=== PATIENT | male | born 1990 | race Caucasian/White ===

== ENCOUNTER 2016-12-19 14:19 | Inpatient (IN) | payer OTHER ==
[2016-12-19 16:50] VITALS: BMI 25.5
--- NOTE | 2016-12-19 17:09 | HP ---
Admission ROS [facility] Chief Complaint: I WANT TO GO TO REHAB PATIENT HAD ELEVATED WHITE BLOOD CELL, ADMITTED TO [facility] X 7 DAYS, DISCHARGED 12/19/16 TO [facility] FOR ALCOHOL OPIATE XANAX REHAB, BOTH ELBOWS IV HEROIN SITES NO SWELLING, NO REDNESS, NO PAIN SKIN INTACT Allergies/Adverse Reactions: Allergies Allergy/AdvReac Type Severity Reaction Status Date / Time egg AdvReac Severe nausea and Verified 12/19/16 17:08 vomiting NKDA Allergy Uncoded 12/19/16 17:09 History of Present Illness: 26 YEARS OLD MALE WITH LONG HISTORY OF ALCOHOL, OPIATE, XANAX, NICOTINE DEPENDENCE, HAD INFECTION IN HEROIN SITES BOTH INNER ELBOWS, HAS DEPRESSION IS ADMITTED TO REHAB Exam Limitations: No Limitations - Ebola screening Have you traveled outside of the country in the last 21 days: No Have you had contact with anyone from an Ebola affected area: No Have you been sick,other than usual withdrawal symptoms: No Do you have a fever: No - Review of Systems Constitutional: Loss of Appetite, Unintentional Wgt. Loss EENT: reports: No Symptoms Reported Respiratory: reports: No Symptoms reported Cardiac: reports: No Symptoms Reported GI: reports: No Symptoms Reported : reports: No Symptoms Reported Musculoskeletal: reports: No Symptoms Reported Integumentary: reports: Change in Color (IV HEROIN BOTH INNER ELBOWS) Neuro: reports: No Symptoms reported Endocrine: reports: No Symptoms Reported Hematology: reports: No Symptoms Reported Psychiatric: reports: Judgement Intact, Orientated x3, Depressed Other Systems: Reviewed and Negative Patient History - Patient Medical History Hx Anemia: No Hx Asthma: No Hx Chronic Obstructive Pulmonary Disease (COPD): No Hx Cancer: No Hx Cardiac Disorders: No Hx Congestive Heart Failure: No Hx Hypertension: No Hx Hypercholesterolemia: No Hx Pacemaker: No HX Cerebrovascular Accident: No Hx Seizures: No Hx Dementia: No Hx Diabetes: No Hx Gastrointestinal Disorders: No Hx Liver Disease: No Hx Genitourinary Disorders: No Hx Sexually Transmitted Disorders: No Hx Renal Disease (ESRD): No Hx Thyroid Disease: No Hx Human Immunodeficiency Virus (HIV): No Hx Hepatitis C: No Hx Depression: Yes Hx Suicide Attempt: No Hx Bipolar Disorder: No Hx Schizophrenia: No - Patient Surgical History Past Surgical History: No - PPD History Previous Implant?: Yes Documented Results: Negative w/o proof Implanted On Prior [facility] Admission?: No PPD to be Administered?: Yes - Smoking Cessation Smoking history: Current every day smoker Have you smoked in the past 12 months: Yes Aproximately how many cigarettes per day: 20 Cigars Per Day: 0 Hx Chewing Tobacco Use: No Initiated information on smoking cessation: Yes 'Breaking Loose' booklet given: 12/19/16 - Substance & Tx. History Hx Alcohol Use: Yes Hx Substance Use: Yes Substance Use Type: Alcohol, Cocaine, Marijuana, Opiates Hx Substance Use Treatment: Yes (09/2016) Family Disease History - Family Disease History Family Disease History: Diabetes: Mother, Other: Father (/LIVER) Admission Physical Exam S - Vital Signs Vital Signs: Vital Signs - 24 hr 12/19/16 16:45 Temperature 98.5 F Pulse Rate 106 H Respiratory 20 Rate Blood Pressure 115/75 - Physical General Appearance: Yes: No Apparent Distress, Appropriately Dressed, Thin HEENTM: Yes: Hearing grossly Normal, Normal ENT Inspection, Normocephalic, Normal Voice Respiratory: Yes: Chest Non-Tender, Lungs Clear, Normal Breath Sounds, No Respiratory Distress, No Accessory Muscle Use Neck: Yes: Supple, Trachea in good position Breast: Yes: Breasts Symetrical Cardiology: Yes: Regular Rhythm, S1, S2, Tachycardia Abdominal: Yes: Normal Bowel Sounds, Non Tender, Soft Genitourinary: Yes: Within Normal Limits Back: Yes: Normal Inspection Musculoskeletal: Yes: full range of Motion, Gait Steady Extremities: Yes: Normal Inspection, Normal Range of Motion, Non-Tender Neurological: Yes: Fully Oriented, Alert, Motor Strength 5/5, Normal Response, Depressed Affect Integumentary: Yes: Warm, Track Dickson Lymphatic: Yes: Within Normal Limits - Diagnostic (1) Alcohol dependence with uncomplicated withdrawal Current Visit: Yes Status: Acute (2) Opioid dependence with withdrawal Current Visit: Yes Status: Acute (3) Sedative, hypnotic or anxiolytic dependence with withdrawal, uncomplicated Current Visit: Yes Status: Acute (4) Nicotine dependence Current Visit: Yes Status: Acute Qualifiers: Nicotine product type: cigarettes Substance use status: in withdrawal Qualified Code(s): F17.213 - Nicotine dependence, cigarettes, with withdrawal; F17.213 - Nicotine dependence, cigarettes, with withdrawal (5) Depression (emotion) Current Visit: Yes Status: Suspected Qualifiers: Depression Type: dysthymia Qualified Code(s): F34.1 - Dysthymic disorder; F34.1 - Dysthymic disorder; F34.1 - Dysthymic disorder (6) Weight loss Current Visit: Yes Status: Acute Cleared for Admission [facility] - Detox or Rehab [facility] Level of Care: Observation Bed Detox Regimen/Protocol: Not Applicable Claeared for Rehab Admission: Yes [facility] Breath Alcohol Content Breath Alcohol Content: 0 Urine Drug Screen - Results Drug Screen Negative: No Urine Drug Screen Results: BZO-Benzodiazepines, MTD-Methadone Inpatient Rehab Admission - Initial Determination Are CD services needed?: Yes Free of communicable disease: Yes Not in need of hospitalization: Yes - Rehab Admission Criteria Previous failed treatment: Yes Poor recovery environment: Yes Comorbidities: Yes Lacks judgement: No Patient is meeting Inpatient Rehab admission criteria:: Yes
[2016-12-19] MEDS ORDERED: LOPERAMIDE HCL 2 MG CAPSULE PO PRN (17:22)
[2016-12-19] MEDS ORDERED: P-EPHED 60MG/TRIPROLIDI 2.5MG TABLET PO PRN (17:22)
[2016-12-19] MEDS ORDERED: MAGNESIUM HYDROX 2400MG/30ML ORAL SUSPENSION 30 ML CUP PO PRN (17:22)
[2016-12-19] MEDS ORDERED: guaiFENesin/D-METHORPHAN HB 10 ML UNIT-DOSE CUPS PO PRN (17:22)
[2016-12-19] MEDS ORDERED: MAG HYDROX/AL HYDROX/SIMETH 30 ML UNIT-DOSE CUP PO PRN (17:22)
[2016-12-19] MEDS ORDERED: MAGNESIUM CITRATE 300 ML BOTTLE PO PRN (17:22)
[2016-12-19] MEDS ORDERED: IBUPROFEN 400 MG TABLET (FP) PO PRN (17:22)
[2016-12-19] MEDS ORDERED: MENTHOL/PHENOL 1 EACH UD MM PRN (17:22)
[2016-12-19] MEDS: THIAMINE HCL 100 MG TABLET (FP) PO SCH (22:08)
[2016-12-19] MEDS: NICOTINE POLACRILEX 4 MG GUM BC PRN (22:14)
[2016-12-19] MEDS ORDERED: TUBERCULIN PPD 5 TU/0.1ML VIAL ID ONE (22:16)
[2016-12-19] MEDS: METHOCARBAMOL 500 MG TABLET PO PRN (22:40)
[2016-12-20 00:31] LABS: URINE APPEARANCE CLEAR; URINE BILIRUBIN NEGATIVE (NEGATIVE); URINE BLOOD 1+ (NEGATIVE); URINE COLOR LT. YELLOW; URINE GLUCOSE (UA) NEGATIVE (NEGATIVE); URINE KETONE NEGATIVE (NEGATIVE); URINE NITRITE NEGATIVE (NEGATIVE); URINE UROBILINOGEN 0.2 mg/dL (0.2-1.0)
[2016-12-20 00:34] LABS: URINE PROTEIN 2+ (NEGATIVE)
[2016-12-20 00:46] LABS: URINE BACTERIA RARE /hpf (NONE SEEN); URINE HYALINE CAST 8 /lpf; URINE MUCUS RARE; URINE RBC 19 /hpf (0-3); URINE WBC 17 /hpf (3-5)
[2016-12-20] MEDS ORDERED: diphenhydrAMINE HCL 25 MG CAPSULE (FP) PO ONE (00:57)
[2016-12-20] MEDS ORDERED: diphenhydrAMINE HCL 50 MG CAPSULE PO ONE ×2 (01:15→01:28)
[2016-12-20 09:13] LABS: URINE LEUK ESTERASE Negative (NEGATIVE)
[2016-12-20] MEDS: PRENATAL VITAMINS W/ FOLIC ACID TABLET (FP) PO SCH (10:13)
[2016-12-20] MEDS: NICOTINE 21 MG/24 HOURS TOPICAL PATCH TD SCH (10:14)
[2016-12-20] MEDS: METHOCARBAMOL 500 MG TABLET PO PRN ×2 (11:24→21:29)
[2016-12-20] MEDS ORDERED: diphenhydrAMINE HCL 25 MG CAPSULE (FP) PO PRN (13:36)
--- NOTE | 2016-12-20 13:44 | HP ---
Psychiatrist Admission - Data Date of interview: 12/20/16 Admission source: [facility] Identifying data: This is the first 5n inpatient rehabilitation admission for this 26 year old single male who is unemployed residing with his mother and 17 year old sister [facility] [place] [facility]. Medical History: Reports a good physical health, smokes cigarettes 20 a day. Psychiatric History: Patient reports feeling depressed and anxious, was seen by a psychiatrist while incarcerated for 12 months at [facility] and was put on Gabapentin 300 mg po daily, after [facility] from [facility] he saw the psychiatrist once and no medications recommended "psychiatrist thought I was drug seeking". Patient is willing to start Gabapentin, Buspar and Naltrexone discussed with the patient he agreed with recommendations, Naltrexone will start next week. Physical/Sexual Abuse/Trauma History: Patient denies history of sexual, phsyical and verbal abuse. Vital Signs: Vital Signs - 24 hr 12/19/16 12/19/16 12/20/16 16:45 23:08 03:30 Temperature 98.5 F 98.3 F Pulse Rate 106 H 96 H Respiratory 20 18 18 Rate Blood Pressure 115/75 121/67 12/20/16 06:58 Temperature 97.9 F Pulse Rate 79 Respiratory 18 Rate Blood Pressure 112/72 Allergies/Adverse Reactions: Allergies Allergy/AdvReac Type Severity Reaction Status Date / Time No Known Drug Allergies Allergy Verified 12/19/16 17:40 egg AdvReac Severe nausea and Verified 12/19/16 17:08 vomiting NKDA Allergy Uncoded 12/19/16 17:09 Date of last physical exam: 12/19/16 Concur with the findings of this exam: Yes - Substance Abuse/Tx History Hx Alcohol Use: Yes (ying binge drinking 2-3 times a week) Hx Substance Use: Yes Substance Use Type: Heroin (injecting 10 bags daily ), Tranquilizers (xanax 2-3 times a week up to 6 mg) Hx Substance Use Treatment: Yes (was in detox, this is his first rehab.) Mental Status Exam - Mental Status Exam Alert and Oriented to: Time, Place, Person Cognitive Function: Good Patient Appearance: Well Groomed Mood: Depressed, Sad, Anxious Affect: Appropriate, Mood Congruent Patient Behavior: Appropriate, Cooperative Speech Pattern: Clear Voice Loudness: Normal Thought Process: Intact Thought Disorder: Not Present Hallucinations: Denies Suicidal Ideation: Denies Homicidal Ideation: Denies Insight/Judgement: Fair Sleep: Fair Appetite: Fair, Weight loss (lost 25 lbs over 2-3 weeks, now regaining back) Muscle strength/Tone: Normal Gait/Station: Normal Psychiatric Findings - Problem List ([place] 1, 2,3) (1) Nicotine dependence Current Visit: Yes Status: Acute Qualifiers: Nicotine product type: cigarettes Substance use status: in withdrawal Qualified Code(s): F17.213 - Nicotine dependence, cigarettes, with withdrawal; F17.213 - Nicotine dependence, cigarettes, with withdrawal (2) Alcohol dependence Current Visit: Yes Status: Acute (3) Opioid dependence Current Visit: Yes Status: Acute (4) Anxiety disorder Current Visit: Yes Status: Acute (5) Opioid-induced mood disorder Current Visit: Yes Status: Acute - Initial Treatment Plan Initial Treatment Plan: Psycheducation and therapy provided, will start Buspar 10 mg po tid. Gabapentin 100 mg po tid, will start Naltrexone next week, monitor progress as needed.
[2016-12-20] MEDS: hydrOXYzine PAMOATE 50 MG CAPSULE (FP) PO PRN ×2 (14:16→21:29)
[2016-12-20] MEDS: GABAPENTIN 100 MG CAPSULE (FP) PO SCH ×2 (14:16→21:29)
[2016-12-20] MEDS: busPIRone HCL 5 MG TABLET PO SCH ×2 (14:16→21:28)
[2016-12-20 14:33] LABS: MCH 27.3 pg (25.7-33.7); MCHC 32.4 g/dl (32.0-35.9); MEAN CELL VOLUME 84.5 fl (80-96); MEAN PLT VOLUME 7.5 fl (7.5-11.1); PLATELET COUNT 380 K/MM3 (134-434); RDW 16.1 % (11.9-15.9); WHITE BLOOD COUNT 11.4 K/mm3 (4.0-10.0)
[2016-12-20 15:16] LABS: ALBUMIN 4.2 g/dl (3.4-5.0); ANION GAP 11 (8-16); CALCIUM 9.5 mg/dL (8.5-10.1); CO2 27 mmol/L (21-32); GLUCOSE,RANDOM 98 mg/dL (74-106)
[2016-12-20 15:21] LABS: ALK PHOS 100 U/L (45-117); BILIRUBIN,TOTAL 0.4 mg/dL (0.2-1.0); CREATININE 0.8 mg/dL (0.7-1.3); SGOT/AST 119 U/L (15-37); SGPT/ALT 241 U/L (12-78); TOT PROT 8.4 g/dl (6.4-8.2)
--- NOTE | 2016-12-20 21:26 | EKG ---
Test Reason : Blood Pressure : / mmHG Vent. Rate : 074 BPM Atrial Rate : 074 BPM P-R Int : 140 ms QRS Dur : 108 ms QT Int : 392 ms P-R-T Axes : 059 026 031 degrees QTc Int : 435 ms NORMAL SINUS RHYTHM NORMAL ECG NO PREVIOUS ECGS AVAILABLE Confirmed by VALERIY GRANDE MD ([id number]) on 12/20/2016 9:26:18 PM Referred By: Confirmed By:VALERIY GRANDE MD
[2016-12-20] MEDS: ACETAMINOPHEN 325 MG TABLET (FP) PO PRN (21:29)
[2016-12-20] MEDS: THIAMINE HCL 100 MG TABLET (FP) PO SCH (21:29)
[2016-12-21] MEDS: GABAPENTIN 100 MG CAPSULE (FP) PO SCH ×3 (06:31→21:29)
[2016-12-21] MEDS: busPIRone HCL 5 MG TABLET PO SCH ×3 (07:31→21:29)
[2016-12-21] MEDS: PRENATAL VITAMINS W/ FOLIC ACID TABLET (FP) PO SCH (10:15)
[2016-12-21] MEDS: NICOTINE 21 MG/24 HOURS TOPICAL PATCH TD SCH (10:15)
[2016-12-21] MEDS: ACETAMINOPHEN 325 MG TABLET (FP) PO PRN ×2 (10:16→19:35)
[2016-12-21] MEDS: NICOTINE POLACRILEX 4 MG GUM BC PRN ×2 (10:17→13:14)
[2016-12-21] MEDS: METHOCARBAMOL 500 MG TABLET PO PRN (13:13)
[2016-12-21] MEDS: THIAMINE HCL 100 MG TABLET (FP) PO SCH (21:29)
[2016-12-21] MEDS: hydrOXYzine PAMOATE 50 MG CAPSULE (FP) PO PRN (21:30)
[2016-12-22] MEDS: busPIRone HCL 5 MG TABLET PO SCH ×2 (06:16→13:08)
[2016-12-22] MEDS: GABAPENTIN 100 MG CAPSULE (FP) PO SCH ×3 (06:16→21:37)
[2016-12-22] MEDS: NICOTINE 21 MG/24 HOURS TOPICAL PATCH TD SCH (10:18)
[2016-12-22] MEDS: PRENATAL VITAMINS W/ FOLIC ACID TABLET (FP) PO SCH (10:18)
[2016-12-22] MEDS: hydrOXYzine PAMOATE 50 MG CAPSULE (FP) PO PRN (10:20)
[2016-12-22] MEDS: NICOTINE POLACRILEX 4 MG GUM BC PRN (10:20)
--- NOTE | 2016-12-22 15:14 | PN ---
Psychiatric Progress Note Vital Signs: Vital Signs Period Temp Pulse Resp BP Sys/Dietz Pulse Ox Last 24 Hr 98.1 F 80 16-18 139/84 Date of Session: 12/22/16 Chief Complaint:: "can't sleep" HPI: Patient is addressing opioid, alcohol, nicotine dependence comorbid anxiety and substance induced sleep disorder. ROS: WNL Current Medications: Active Medications Generic Name Dose Route Start Last Admin Trade Name Freq PRN Reason Stop Dose Admin Acetaminophen 650 mg 12/19/16 17:22 12/21/16 19:35 Tylenol - PO 650 mg Q4H PRN Administration PAIN Al Hydroxide/Mg Hydroxide 30 ml 12/19/16 17:22 12/21/16 06:32 Mylanta Oral Suspension - PO 30 ml Q6H PRN Administration DYSPEPSIA Diphenhydramine HCl 50 mg 12/20/16 13:36 Benadryl - PO HS PRN INSOMNIA Eucalyptus/Menthol/Phenol/Sorbitol 1 each 12/19/16 17:22 Cepastat Lozenge - MM Q4H PRN SORE THROAT Gabapentin 100 mg 12/20/16 14:00 12/22/16 13:08 Neurontin - PO 100 mg TID LACIE Administration Guaifenesin 10 ml 12/19/16 17:22 Robitussin Dm - PO Q6H PRN COUGH Hydroxyzine Pamoate 50 mg 12/20/16 13:37 12/22/16 10:20 Vistaril - PO 50 mg Q4H PRN Administration ANXIETY Ibuprofen 400 mg 12/19/16 17:22 Motrin - PO Q6H PRN SEVERE PAIN Loperamide HCl 4 mg 12/19/16 17:22 Imodium - PO Q6H PRN DIARRHEA Magnesium Citrate 300 ml 12/19/16 17:22 Citroma - PO Q48H PRN CONSTIPATION Magnesium Hydroxide 30 ml 12/19/16 17:22 Milk Of Magnesia - PO DAILY PRN CONSTIPATION Methocarbamol 500 mg 12/19/16 17:24 12/21/16 13:13 Robaxin - PO 500 mg Q8H PRN Administration BACK PAIN Nicotine 21 mg 12/20/16 10:00 12/22/16 10:18 Nicoderm Patch - TD Not Given DAILY LACIE Nicotine Polacrilex 4 mg 12/19/16 17:22 12/22/16 10:20 Nicorette Gum - BC 4 mg Q2H PRN Administration NICOTINE REPLACEMENT RX Multivit/Folic Acid/Iron 1 tab 12/20/16 10:00 12/22/16 10:18 Vitamins ([facility]) - PO 1 tab DAILY LACIE Administration Pseudoephedrine/Triprolidine 1 combo 12/19/16 17:22 Actifed - PO TID PRN NASAL CONGESTION Thiamine HCl 100 mg 12/19/16 22:00 12/21/16 21:29 Vitamin B1 - PO 100 mg HS LACIE Administration Current Side Effect: No Lab tests ordered: No Lab tests reviewed: Yes Provider note:: Patient reports that he can't sleep well, thinks it's related to Buspar, states he refused Buspar and feels better but still having difficutly at nights, discussed indications and properties of Belsomra with the patient will add and continue to monitor progress. Total face to face time:: 25 Mental Status Exam - Mental Status Exam Alert and Oriented to: Time, Place, Person Cognitive Function: Good Patient Appearance: Well Groomed Mood: Sad Affect: Appropriate, Mood Congruent Patient Behavior: Appropriate, Cooperative Speech Pattern: Clear, Appropriate Voice Loudness: Normal Thought Process: Intact, Goal Oriented Thought Disorder: Not Present Hallucinations: Denies Suicidal Ideation: Denies Homicidal Ideation: Denies Insight/Judgement: Fair Sleep: Poorly, Difficulty falling asleep Appetite: Fair Muscle strength/Tone: Normal Psychiatric Treatment Plan - Problem List (1) Nicotine dependence Current Visit: Yes Qualifiers: Nicotine product type: cigarettes Substance use status: in withdrawal Qualified Code(s): F17.213 - Nicotine dependence, cigarettes, with withdrawal (2) Opioid-induced mood disorder Current Visit: Yes (3) Alcohol dependence Current Visit: Yes (4) Opioid dependence Current Visit: Yes (5) Anxiety disorder Current Visit: Yes
[2016-12-22] MEDS: THIAMINE HCL 100 MG TABLET (FP) PO SCH (21:37)
[2016-12-22] MEDS: SUVOREXANT 10 MG TABLET PO SCH (21:37)
[2016-12-23] MEDS: GABAPENTIN 100 MG CAPSULE (FP) PO SCH ×3 (06:17→21:49)
[2016-12-23] MEDS: hydrOXYzine PAMOATE 50 MG CAPSULE (FP) PO PRN (10:34)
[2016-12-23] MEDS: NICOTINE POLACRILEX 4 MG GUM BC PRN ×2 (10:34→21:50)
[2016-12-23] MEDS: PRENATAL VITAMINS W/ FOLIC ACID TABLET (FP) PO SCH (10:34)
[2016-12-23] MEDS: NICOTINE 21 MG/24 HOURS TOPICAL PATCH TD SCH (10:35)
[2016-12-23] MEDS: SUVOREXANT 10 MG TABLET PO SCH (21:49)
[2016-12-23] MEDS: THIAMINE HCL 100 MG TABLET (FP) PO SCH (21:50)
[2016-12-24] MEDS: GABAPENTIN 100 MG CAPSULE (FP) PO SCH ×3 (07:02→21:35)
[2016-12-24] MEDS: PRENATAL VITAMINS W/ FOLIC ACID TABLET (FP) PO SCH (10:09)
[2016-12-24] MEDS: METHOCARBAMOL 500 MG TABLET PO PRN (10:09)
[2016-12-24] MEDS: NICOTINE 21 MG/24 HOURS TOPICAL PATCH TD SCH (10:10)
[2016-12-24] MEDS: hydrOXYzine PAMOATE 50 MG CAPSULE (FP) PO PRN (10:10)
[2016-12-24] MEDS: SUVOREXANT 10 MG TABLET PO SCH (21:35)
[2016-12-24] MEDS: NICOTINE POLACRILEX 4 MG GUM BC PRN (21:35)
[2016-12-24] MEDS: THIAMINE HCL 100 MG TABLET (FP) PO SCH (21:35)
[2016-12-25] MEDS: GABAPENTIN 100 MG CAPSULE (FP) PO SCH ×3 (06:46→21:45)
[2016-12-25] MEDS: NICOTINE 21 MG/24 HOURS TOPICAL PATCH TD SCH (10:24)
[2016-12-25] MEDS: METHOCARBAMOL 500 MG TABLET PO PRN ×2 (10:24→21:45)
[2016-12-25] MEDS: hydrOXYzine PAMOATE 50 MG CAPSULE (FP) PO PRN ×3 (10:24→21:45)
[2016-12-25] MEDS: PRENATAL VITAMINS W/ FOLIC ACID TABLET (FP) PO SCH (10:24)
[2016-12-25] MEDS: THIAMINE HCL 100 MG TABLET (FP) PO SCH (21:45)
[2016-12-25] MEDS: SUVOREXANT 10 MG TABLET PO SCH (21:45)
[2016-12-26] MEDS: GABAPENTIN 100 MG CAPSULE (FP) PO SCH ×3 (07:00→21:40)
[2016-12-26] MEDS: PRENATAL VITAMINS W/ FOLIC ACID TABLET (FP) PO SCH (09:57)
[2016-12-26] MEDS: METHOCARBAMOL 500 MG TABLET PO PRN (09:59)
[2016-12-26] MEDS: hydrOXYzine PAMOATE 50 MG CAPSULE (FP) PO PRN (09:59)
[2016-12-26] MEDS: NICOTINE POLACRILEX 4 MG GUM BC PRN (09:59)
[2016-12-26] MEDS: NICOTINE 21 MG/24 HOURS TOPICAL PATCH TD SCH (10:00)
--- NOTE | 2016-12-26 14:18 | PN ---
Psychiatric Progress Note Vital Signs: Vital Signs Period Temp Pulse Resp BP Sys/Dietz Pulse Ox Last 24 Hr 97.7 F 99 16-16 128/79 Date of Session: 12/26/16 Chief Complaint:: progress update HPI: Patient is addressing opioid, alcohol, nicotine dependence comorbid anxiety and substance induced sleep disorder. ROS: WNL Current Medications: Active Medications Generic Name Dose Route Start Last Admin Trade Name Freq PRN Reason Stop Dose Admin Acetaminophen 650 mg 12/19/16 17:22 12/21/16 19:35 Tylenol - PO 650 mg Q4H PRN Administration PAIN Al Hydroxide/Mg Hydroxide 30 ml 12/19/16 17:22 12/21/16 06:32 Mylanta Oral Suspension - PO 30 ml Q6H PRN Administration DYSPEPSIA Diphenhydramine HCl 50 mg 12/20/16 13:36 Benadryl - PO HS PRN INSOMNIA Eucalyptus/Menthol/Phenol/Sorbitol 1 each 12/19/16 17:22 Cepastat Lozenge - MM Q4H PRN SORE THROAT Gabapentin 100 mg 12/20/16 14:00 12/26/16 13:53 Neurontin - PO 100 mg TID LACIE Administration Guaifenesin 10 ml 12/19/16 17:22 Robitussin Dm - PO Q6H PRN COUGH Hydroxyzine Pamoate 50 mg 12/20/16 13:37 12/26/16 09:59 Vistaril - PO 50 mg Q4H PRN Administration ANXIETY Ibuprofen 400 mg 12/19/16 17:22 Motrin - PO Q6H PRN SEVERE PAIN Loperamide HCl 4 mg 12/19/16 17:22 Imodium - PO Q6H PRN DIARRHEA Magnesium Citrate 300 ml 12/19/16 17:22 Citroma - PO Q48H PRN CONSTIPATION Magnesium Hydroxide 30 ml 12/19/16 17:22 Milk Of Magnesia - PO DAILY PRN CONSTIPATION Methocarbamol 500 mg 12/19/16 17:24 12/26/16 09:59 Robaxin - PO 500 mg Q8H PRN Administration BACK PAIN Nicotine 21 mg 12/20/16 10:00 12/26/16 10:00 Nicoderm Patch - TD Not Given DAILY LACIE Nicotine Polacrilex 4 mg 12/19/16 17:22 12/26/16 09:59 Nicorette Gum - BC 4 mg Q2H PRN Administration NICOTINE REPLACEMENT RX Multivit/Folic Acid/Iron 1 tab 12/20/16 10:00 12/26/16 09:57 Vitamins ([facility]) - PO 1 tab DAILY LACIE Administration Pseudoephedrine/Triprolidine 1 combo 12/19/16 17:22 Actifed - PO TID PRN NASAL CONGESTION Quetiapine Fumarate 25 mg 12/26/16 14:15 Seroquel - PO HS LACIE Thiamine HCl 100 mg 12/19/16 22:00 12/25/16 21:45 Vitamin B1 - PO 100 mg HS LACIE Administration Current Side Effect: No Lab tests ordered: No Lab tests reviewed: Yes Provider note:: Patient adjusted well to the unit, attends groups , he reports that he gats up at 3 am every night and having racing thoughts which keep him night, feels fatigued next day, reports a past good responce to Seroquel states was taking 300 mg hs, discussed indications and properties of Seroquel , will add 25 mg continue to monitor progress. Total face to face time:: 25 Mental Status Exam - Mental Status Exam Alert and Oriented to: Time, Place, Person Cognitive Function: Good Patient Appearance: Well Groomed Mood: Anxious Affect: Appropriate, Mood Congruent Patient Behavior: Appropriate, Cooperative Speech Pattern: Clear, Appropriate Voice Loudness: Normal Thought Process: Intact Thought Disorder: Not Present Hallucinations: Denies Suicidal Ideation: Denies Homicidal Ideation: Denies Insight/Judgement: Fair Sleep: Poorly Appetite: Good Muscle strength/Tone: Normal Gait/Station: Normal Psychiatric Treatment Plan - Problem List (1) Nicotine dependence Current Visit: Yes Qualifiers: Nicotine product type: cigarettes Substance use status: in withdrawal Qualified Code(s): F17.213 - Nicotine dependence, cigarettes, with withdrawal (2) Opioid-induced mood disorder Current Visit: Yes (3) Alcohol dependence Current Visit: Yes (4) Opioid dependence Current Visit: Yes (5) Anxiety disorder Current Visit: Yes
[2016-12-26] MEDS: QUEtiapine FUMARATE 25 MG TABLET (FP) PO SCH (21:40)
[2016-12-26] MEDS: SUVOREXANT 10 MG TABLET PO SCH (21:40)
[2016-12-26] MEDS: THIAMINE HCL 100 MG TABLET (FP) PO SCH (21:40)
[2016-12-27] MEDS: GABAPENTIN 100 MG CAPSULE (FP) PO SCH ×3 (06:55→21:24)
[2016-12-27] MEDS: NICOTINE 21 MG/24 HOURS TOPICAL PATCH TD SCH (10:07)
[2016-12-27] MEDS: PRENATAL VITAMINS W/ FOLIC ACID TABLET (FP) PO SCH (10:07)
[2016-12-27] MEDS: NICOTINE POLACRILEX 4 MG GUM BC PRN (10:08)
[2016-12-27] MEDS: THIAMINE HCL 100 MG TABLET (FP) PO SCH (21:24)
[2016-12-27] MEDS: SUVOREXANT 10 MG TABLET PO SCH (21:24)
[2016-12-27] MEDS: QUEtiapine FUMARATE 25 MG TABLET (FP) PO SCH (21:24)
[2016-12-28] MEDS: GABAPENTIN 100 MG CAPSULE (FP) PO SCH ×3 (06:42→21:19)
[2016-12-28] MEDS: NICOTINE 21 MG/24 HOURS TOPICAL PATCH TD SCH (10:12)
[2016-12-28] MEDS: PRENATAL VITAMINS W/ FOLIC ACID TABLET (FP) PO SCH (10:12)
[2016-12-28] MEDS: METHOCARBAMOL 500 MG TABLET PO PRN (10:14)
[2016-12-28] MEDS: NICOTINE POLACRILEX 4 MG GUM BC PRN (10:14)
[2016-12-28] MEDS: QUEtiapine FUMARATE 25 MG TABLET (FP) PO SCH (21:19)
[2016-12-28] MEDS: SUVOREXANT 10 MG TABLET PO SCH (21:19)
[2016-12-28] MEDS: THIAMINE HCL 100 MG TABLET (FP) PO SCH (21:19)
[2016-12-29] MEDS: GABAPENTIN 100 MG CAPSULE (FP) PO SCH ×3 (06:39→21:28)
[2016-12-29] MEDS: NICOTINE 21 MG/24 HOURS TOPICAL PATCH TD SCH (10:20)
[2016-12-29] MEDS: PRENATAL VITAMINS W/ FOLIC ACID TABLET (FP) PO SCH (10:21)
[2016-12-29] MEDS: QUEtiapine FUMARATE 25 MG TABLET (FP) PO SCH (21:27)
[2016-12-29] MEDS: THIAMINE HCL 100 MG TABLET (FP) PO SCH (21:28)
[2016-12-30] MEDS: GABAPENTIN 100 MG CAPSULE (FP) PO SCH ×3 (06:45→21:35)
[2016-12-30] MEDS: NICOTINE 21 MG/24 HOURS TOPICAL PATCH TD SCH (10:10)
[2016-12-30] MEDS: PRENATAL VITAMINS W/ FOLIC ACID TABLET (FP) PO SCH (10:10)
[2016-12-30] MEDS: NICOTINE POLACRILEX 4 MG GUM BC PRN (10:11)
[2016-12-30] MEDS: METHOCARBAMOL 500 MG TABLET PO PRN ×2 (10:11→21:34)
[2016-12-30] MEDS: THIAMINE HCL 100 MG TABLET (FP) PO SCH (21:33)
[2016-12-30] MEDS: QUEtiapine FUMARATE 25 MG TABLET (FP) PO SCH (21:33)
[2016-12-31] MEDS: GABAPENTIN 100 MG CAPSULE (FP) PO SCH ×3 (07:06→21:22)
[2016-12-31] MEDS: PRENATAL VITAMINS W/ FOLIC ACID TABLET (FP) PO SCH (10:05)
[2016-12-31] MEDS: METHOCARBAMOL 500 MG TABLET PO PRN (10:05)
[2016-12-31] MEDS: NICOTINE POLACRILEX 4 MG GUM BC PRN ×2 (10:06→12:57)
[2016-12-31] MEDS: NICOTINE 21 MG/24 HOURS TOPICAL PATCH TD SCH (10:06)
[2016-12-31] MEDS: QUEtiapine FUMARATE 25 MG TABLET (FP) PO SCH (21:22)
[2016-12-31] MEDS: THIAMINE HCL 100 MG TABLET (FP) PO SCH (21:23)
[2017-01-01] MEDS: GABAPENTIN 100 MG CAPSULE (FP) PO SCH ×3 (06:46→21:37)
[2017-01-01] MEDS: NICOTINE 21 MG/24 HOURS TOPICAL PATCH TD SCH (10:03)
[2017-01-01] MEDS: PRENATAL VITAMINS W/ FOLIC ACID TABLET (FP) PO SCH (10:04)
[2017-01-01] MEDS: NICOTINE POLACRILEX 4 MG GUM BC PRN (10:04)
[2017-01-01] MEDS: METHOCARBAMOL 500 MG TABLET PO PRN (10:04)
[2017-01-01] MEDS: THIAMINE HCL 100 MG TABLET (FP) PO SCH (21:37)
[2017-01-01] MEDS: QUEtiapine FUMARATE 25 MG TABLET (FP) PO SCH (21:37)
[2017-01-02] MEDS: ACETAMINOPHEN 325 MG TABLET (FP) PO PRN (00:19)
[2017-01-02] MEDS: GABAPENTIN 100 MG CAPSULE (FP) PO SCH ×3 (06:28→21:43)
[2017-01-02] MEDS: NICOTINE 21 MG/24 HOURS TOPICAL PATCH TD SCH (10:29)
[2017-01-02] MEDS: PRENATAL VITAMINS W/ FOLIC ACID TABLET (FP) PO SCH (10:29)
[2017-01-02] MEDS: hydrOXYzine PAMOATE 50 MG CAPSULE (FP) PO PRN (10:30)
[2017-01-02] MEDS: METHOCARBAMOL 500 MG TABLET PO PRN ×2 (10:32→21:44)
[2017-01-02] MEDS: THIAMINE HCL 100 MG TABLET (FP) PO SCH (21:43)
[2017-01-02] MEDS: QUEtiapine FUMARATE 25 MG TABLET (FP) PO SCH (21:43)
[2017-01-03] MEDS: ACETAMINOPHEN 325 MG TABLET (FP) PO PRN (01:09)
[2017-01-03] MEDS: GABAPENTIN 100 MG CAPSULE (FP) PO SCH (06:33)
[2017-01-03 06:55] VITALS: BP 122/81; PULSE 80; TEMP 97.7
[2017-01-03] MEDS: NICOTINE 21 MG/24 HOURS TOPICAL PATCH TD SCH (09:33)
[2017-01-03] MEDS: PRENATAL VITAMINS W/ FOLIC ACID TABLET (FP) PO SCH (09:34)
[2017-01-03] MEDS: METHOCARBAMOL 500 MG TABLET PO PRN (09:35)
--- NOTE | 2017-01-03 09:42 | PN ---
Psychiatric Progress Note Vital Signs: Vital Signs Period Temp Pulse Resp BP Sys/Dietz Pulse Ox Last 24 Hr 97.7 F 80 18-18 122/81 Date of Session: 01/03/17 Chief Complaint:: discharge visit HPI: Patient has addressed opioid, alcohol, nicotine dependence comorbid anxiety and substance induced sleep disorder. ROS: WNL Current Medications: Active Medications Generic Name Dose Route Start Last Admin Trade Name Freq PRN Reason Stop Dose Admin Acetaminophen 650 mg 12/19/16 17:22 01/03/17 01:09 Tylenol - PO 650 mg Q4H PRN Administration PAIN Al Hydroxide/Mg Hydroxide 30 ml 12/19/16 17:22 12/21/16 06:32 Mylanta Oral Suspension - PO 30 ml Q6H PRN Administration DYSPEPSIA Diphenhydramine HCl 50 mg 12/20/16 13:36 01/03/17 01:09 Benadryl - PO 50 mg HS PRN Administration INSOMNIA Eucalyptus/Menthol/Phenol/Sorbitol 1 each 12/19/16 17:22 Cepastat Lozenge - MM Q4H PRN SORE THROAT Gabapentin 100 mg 12/20/16 14:00 01/03/17 06:33 Neurontin - PO Not Given TID LACIE Guaifenesin 10 ml 12/19/16 17:22 Robitussin Dm - PO Q6H PRN COUGH Hydroxyzine Pamoate 50 mg 12/20/16 13:37 01/02/17 10:30 Vistaril - PO 50 mg Q4H PRN Administration ANXIETY Ibuprofen 400 mg 12/19/16 17:22 Motrin - PO Q6H PRN SEVERE PAIN Loperamide HCl 4 mg 12/19/16 17:22 Imodium - PO Q6H PRN DIARRHEA Magnesium Citrate 300 ml 12/19/16 17:22 Citroma - PO Q48H PRN CONSTIPATION Magnesium Hydroxide 30 ml 12/19/16 17:22 Milk Of Magnesia - PO DAILY PRN CONSTIPATION Methocarbamol 500 mg 12/19/16 17:24 01/03/17 09:35 Robaxin - PO 500 mg Q8H PRN Administration BACK PAIN Nicotine 21 mg 12/20/16 10:00 01/03/17 09:33 Nicoderm Patch - TD Not Given DAILY [facility] Nicotine Polacrilex 4 mg 12/19/16 17:22 01/01/17 10:04 Nicorette Gum - BC 4 mg Q2H PRN Administration NICOTINE REPLACEMENT RX Multivit/Folic Acid/Iron 1 tab 12/20/16 10:00 01/03/17 09:34 Vitamins ([facility]) - PO 1 tab DAILY LACIE Administration Pseudoephedrine/Triprolidine 1 combo 12/19/16 17:22 Actifed - PO TID PRN NASAL CONGESTION Quetiapine Fumarate 25 mg 12/26/16 22:00 01/02/17 21:43 Seroquel - PO 25 mg HS LACIE Administration Thiamine HCl 100 mg 12/19/16 22:00 01/02/17 21:43 Vitamin B1 - PO 100 mg HS LACIE Administration Current Side Effect: No Lab tests ordered: No Lab tests reviewed: Yes Provider note:: Patient has completed today his treatment and met his goals, will continue to address his issues at [facility] rehabilitation program. Patient gained insights into importance of changning attitudes/behavior, utilze all supports available to prevent relapses. Medications(Gabapentin and Seroquel) well tolerated, patient reports he feels much better, his sleep improved and anxiety decreased. Scripts provided for 30 days, patient is stable for discharge today. Total face to face time:: 15 Mental Status Exam - Mental Status Exam Alert and Oriented to: Time, Place, Person Cognitive Function: Good Patient Appearance: Well Groomed Mood: Hopeful Affect: Appropriate, Mood Congruent Patient Behavior: Appropriate, Cooperative Speech Pattern: Clear, Appropriate Voice Loudness: Normal Thought Process: Intact, Goal Oriented Thought Disorder: Not Present Hallucinations: Denies Suicidal Ideation: Denies Homicidal Ideation: Denies Insight/Judgement: Fair Sleep: Fair Appetite: Fair Muscle strength/Tone: Normal Gait/Station: Normal Psychiatric Treatment Plan - Problem List (1) Nicotine dependence Current Visit: Yes Qualifiers: Nicotine product type: cigarettes Substance use status: in withdrawal Qualified Code(s): F17.213 - Nicotine dependence, cigarettes, with withdrawal (2) Opioid-induced mood disorder Current Visit: Yes (3) Alcohol dependence Current Visit: Yes (4) Opioid dependence Current Visit: Yes (5) Anxiety disorder Current Visit: Yes
== END 2017-01-03 09:50 | disposition home or self-care (01) | DRG 772 ==
LOC: YASAS 14:19 → Y5N 17:59
PROVIDERS: ADMIT Psychiatry & Neurology Psychiatry; ATTEND Psychiatry & Neurology Psychiatry
PROC: HZ42ZZZ Group Counseling for Substance Abuse Treatment, Cognitive-Behavioral (ICD-10-PCS; principal; 2016-12-19)
DX: F11.23 Opioid dependence with withdrawal (principal); F13.230 Sedative, hypnotic or anxiolytic dependence with withdrawal, uncomplicated; F10.230 Alcohol dependence with withdrawal, uncomplicated; F17.213 Nicotine dependence, cigarettes, with withdrawal; F41.9 Anxiety disorder, unspecified; F34.1 Dysthymic disorder; R63.4 Abnormal weight loss; Z68.25 Body mass index [BMI] 25.0-25.9, adult
CPT/HCPCS: 36415; 80053; 81003; 81015; 85027; 86593; 93005; 93010

== ENCOUNTER 2017-04-15 10:39 | Inpatient (IN) | payer OTHER ==
[2017-04-15 13:07] VITALS: BMI 29.6
--- NOTE | 2017-04-15 13:11 | HP ---
COWS - Scale Resting Pulse: 0= [place] 80 or Below Sweatin= Chills/Flushing Restless Observation: 1= Difficult to Sit Still Pupil Size: 0= Normal to Room Light Bone or Joint Aches: 1= Mild Discomfort Runny Nose/ Eye Tearin= Nasal Congestion GI Upset > 30mins: 1= Stomach Cramp Tremor Observation: 2= Slight Tremor Visible Yawning Observation: 0= None Anxiety or Irritability: 1=Feels Anxious/Irritable Goose Flesh Skin: 0=Smooth Skin COWS Score: 8 CIWA Score - CIWA Score Nausea/Vomitin-Mild Nausea/No Vomiting Muscle Tremors: 4-Moderate,w/Arms Extend Anxiety: 1-Mildly Anxious Agitation: 1-Slight > Activity Paroxysmal Sweats: 1-Minimal Palms Moist Orientation: 1-Uncertain about Date Tacttile Disturbances: 1-Very Mild Itch/Numbness Auditory Disturbances: 1-Very Mild Visual Disturbances: 1-Very Mild Sensitivity Headache: 2-Mild CIWA-Ar Total Score: 14 Admission ROS S - HPI Chief Complaint: My family is disappointed that I started using again, so I came to detox Allergies/Adverse Reactions: Allergies Allergy/AdvReac Type Severity Reaction Status Date / Time No Known Drug Allergies Allergy Verified 04/15/17 13:57 History of Present Illness: 27 yo gentleman here for detox from alcohol and heroin - last detox a month ago at [facility]. Was here in rehab last year in December. No seizures, denies black outs, never in methadone or suboxone program. Exam Limitations: No Limitations - Ebola screening Have you traveled outside of the country in the last 21 days: No (N) Have you had contact with anyone from an Ebola affected area: No Do you have a fever: No - Review of Systems Constitutional: Loss of Appetite, Malaise, Night Sweats, Changes in sleep, Weakness EENT: reports: Blurred Vision, Nose Congestion Respiratory: reports: No Symptoms reported Cardiac: reports: No Symptoms Reported GI: reports: Nausea, Poor Appetite, Indigestion : reports: No Symptoms Reported Musculoskeletal: reports: Back Pain, Muscle Pain Integumentary: reports: No Symptoms Reported Neuro: reports: Headache, Tremors Endocrine: reports: No Symptoms Reported Hematology: reports: No Symptoms Reported Psychiatric: reports: Judgement Intact, Mood/Affect Appropiate, Anxious Other Systems: Reviewed and Negative Patient History - Patient Medical History Hx Anemia: No Hx Asthma: No Hx Chronic Obstructive Pulmonary Disease (COPD): No Hx Cancer: No Hx Cardiac Disorders: No Hx Congestive Heart Failure: No Hx Hypertension: No Hx Hypercholesterolemia: No Hx Pacemaker: No HX Cerebrovascular Accident: No Hx Seizures: No Hx Dementia: No Hx Diabetes: No Hx Gastrointestinal Disorders: No Hx Liver Disease: No Hx Genitourinary Disorders: No Hx Sexually Transmitted Disorders: No Hx Renal Disease (ESRD): No Hx Thyroid Disease: No Hx Human Immunodeficiency Virus (HIV): No Hx Hepatitis C: No Hx Depression: Yes (on meds) Hx Suicide Attempt: No Hx Bipolar Disorder: No Hx Schizophrenia: No - Patient Surgical History Past Surgical History: No Hx Neurologic Surgery: No Hx Cataract Extraction: No Hx Cardiac Surgery: No Hx Lung Surgery: No Hx Breast Surgery: No Hx Breast Biopsy: No Hx Abdominal Surgery: No Hx Appendectomy: No Hx Cholecystectomy: No Hx Genitourinary Surgery: No Hx Section: No Hx Orthopedic Surgery: No Anesthesia Reaction: No - PPD History Previous Implant?: Yes Documented Results: Negative w/proof Implanted On Prior R Admission?: Yes Date: 12/21/16 PPD to be Administered?: No - Reproductive History Patient is a Female of Child Bearing Age (11 -55 yrs old): No (male) - Smoking Cessation Smoking history: Current every day smoker Have you smoked in the past 12 months: Yes Aproximately how many cigarettes per day: 20 Cigars Per Day: 0 Hx Chewing Tobacco Use: No Initiated information on smoking cessation: Yes 'Breaking Loose' booklet given: 04/15/17 (give on floor) - Substance & Tx. History Hx Alcohol Use: Yes Hx Substance Use: Yes Substance Use Type: Alcohol, Heroin Hx Substance Use Treatment: Yes (detox, rehab) - Substances Abused alcohol Route: Oral Frequency: Daily Amount used: 1 pint [place] Age of first use: 19 Date of Last Use: 04/14/17 Heroin Route: Injection Frequency: Daily Amount used: 1 bundle Age of first use: 19 Date of Last Use: 04/14/17 Marijuana/Hashish Route: Smoking Frequency: 1-2 times per week Amount used: 1 joint Age of first use: 15 Date of Last Use: 04/11/17 Family Disease History - Family Disease History Family Disease History: Respiratory: Mother (living, COPD, hx etoh), Other: Father (/LIVER, etoh, heroin), Mother, Brother (two - living, healthy), Sister (one -living, healthy) Admission Physical Exam [facility] - Vital Signs Vital Signs: Vital Signs Period Temp Pulse Resp BP Sys/Dietz Pulse Ox Last 24 Hr 97.5 F 79 18 119/70 - Physical General Appearance: Yes: Nourished, Appropriately Dressed, Mild Distress HEENTM: Yes: Hearing grossly Normal, Normocephalic, Normal Voice Respiratory: Yes: Normal Breath Sounds, No Respiratory Distress Neck: Yes: No masses,lesions,Nodules, Supple Breast: Yes: Breast Exam Deferred Cardiology: Yes: Regular Rhythm, Regular Rate Abdominal: Yes: Flat, Soft Genitourinary: Yes: Within Normal Limits Back: Yes: Normal Inspection Musculoskeletal: Yes: full range of Motion, Gait Steady, Back pain, Muscle Pain Extremities: Yes: Normal Inspection, Normal Range of Motion Neurological: Yes: Alert, Normal Mood/Affect, Normal Response Integumentary: Yes: Normal Color, Dry, Warm, Track D[place]on (both arms from wrist to antecubital space - no swelling, no erythema) Lymphatic: Yes: Within Normal Limits - Diagnostic (1) Opioid dependence with withdrawal Current Visit: Yes Status: Chronic (2) Alcohol dependence with uncomplicated withdrawal Current Visit: Yes Status: Chronic (3) Dehydration Current Visit: Yes Status: Acute (4) Marijuana dependence Current Visit: Yes Status: Chronic (5) Nicotine dependence Current Visit: Yes Status: Acute Qualifiers: Nicotine product type: cigarettes Substance use status: in withdrawal Qualified Code(s): F17.213 - Nicotine dependence, cigarettes, with withdrawal Cleared for Admission [facility] - Detox or Rehab [facility] Level of Care: Medically Managed Detox Regimen/Protocol: Methadone/Librium [facility] Breath Alcohol Content Breath Alcohol Content: 0
[2017-04-15] MEDS ORDERED: MAG HYDROX/AL HYDROX/SIMETH 30 ML UNIT-DOSE CUP PO PRN (13:18)
[2017-04-15] MEDS ORDERED: LOPERAMIDE HCL 2 MG CAPSULE PO PRN (13:18)
[2017-04-15] MEDS ORDERED: NICOTINE 21 MG/24 HOURS TOPICAL PATCH TD PRN (13:18)
[2017-04-15] MEDS ORDERED: METHADONE HCL 10 MG TABLET (FOR DETOX USE ONLY) PO ONE ×2 (13:18→23:00)
[2017-04-15] MEDS ORDERED: MAGNESIUM CITRATE 300 ML BOTTLE PO PRN (13:18)
[2017-04-15] MEDS ORDERED: MAGNESIUM HYDROX 2400MG/30ML ORAL SUSPENSION 30 ML CUP PO PRN (13:18)
[2017-04-15] MEDS ORDERED: guaiFENesin/D-METHORPHAN HB 10 ML UNIT-DOSE CUPS PO PRN (13:18)
[2017-04-15] MEDS ORDERED: NICOTINE POLACRILEX 2 MG GUM BUC PRN (13:18)
[2017-04-15] MEDS ORDERED: P-EPHED 60MG/TRIPROLIDI 2.5MG TABLET PO PRN (13:18)
[2017-04-15] MEDS ORDERED: chlordiazePOXIDE HCL 25 MG CAPSULE PO PRN (13:18)
[2017-04-15] MEDS ORDERED: IBUPROFEN 400 MG TABLET (FP) PO PRN (13:18)
[2017-04-15] MEDS ORDERED: MENTHOL/PHENOL 1 EACH UD MM PRN (13:18)
[2017-04-15] MEDS ORDERED: chlordiazePOXIDE HCL 25 MG CAPSULE PO ONE (14:30)
[2017-04-15 17:36] LABS: URINE APPEARANCE CLEAR; URINE BILIRUBIN NEGATIVE (NEGATIVE); URINE BLOOD 1+ (NEGATIVE); URINE COLOR DKYELLOW; URINE GLUCOSE (UA) 1+ (NEGATIVE); URINE KETONE TRACE (NEGATIVE); URINE LEUK ESTERASE NEGATIVE (NEGATIVE); URINE NITRITE NEGATIVE (NEGATIVE); URINE PROTEIN NEGATIVE (NEGATIVE); URINE UROBILINOGEN 4.0 E.U/dl mg/dL (0.2-1.0)
[2017-04-15 17:43] LABS: EPI CELLS RARE /HPF (FEW); URINE MUCUS MANY
[2017-04-15] MEDS ORDERED: METHADONE HCL 10 MG TABLET (FOR DETOX USE ONLY) ONE (18:12)
[2017-04-15] MEDS: chlordiazePOXIDE HCL 25 MG CAPSULE PO SCH ×2 (18:13→22:55)
[2017-04-15] MEDS: THIAMINE HCL 100 MG TABLET (FP) PO SCH (22:55)
[2017-04-16] MEDS: chlordiazePOXIDE HCL 25 MG CAPSULE PO SCH ×4 (05:44→22:43)
[2017-04-16] MEDS ORDERED: METHADONE HCL 10 MG TABLET (FOR DETOX USE ONLY) PO SCH (10:00)
[2017-04-16 10:30] LABS: HEMATOCRIT 38.8 % (35.4-49); HEMOGLOBIN 13.4 GM/dL (11.7-16.9); MCH 30.6 pg (25.7-33.7); MCHC 34.4 g/dl (32.0-35.9); MEAN CELL VOLUME 88.9 fl (80-96); MEAN PLT VOLUME 7.4 fl (7.5-11.1); PLATELET COUNT 273 K/MM3 (134-434); RBC 4.37 M/mm3 (4.00-5.60); RDW 13.3 % (11.9-15.9)
[2017-04-16] MEDS: PRENATAL VITAMINS W/ FOLIC ACID TABLET (FP) PO SCH (10:31)
[2017-04-16 10:40] LABS: ALBUMIN 3.4 g/dl (3.4-5.0); ANION GAP 4 (8-16); BLOOD UREA NITROGEN 10 mg/dL (7-18); CALCIUM 7.9 mg/dL (8.5-10.1); CHLORIDE 106 mmol/L (98-107); CO2 29 mmol/L (21-32); GLUCOSE,RANDOM 72 mg/dL (74-106); POTASSIUM 3.6 mmol/L (3.5-5.1); SGOT/AST 11 U/L (15-37); SGPT/ALT 19 U/L (12-78); SODIUM 139 mmol/L (136-145)
[2017-04-16 10:43] LABS: ALK PHOS 52 U/L (45-117); BILIRUBIN,TOTAL 0.5 mg/dL (0.2-1.0); CREATININE 0.7 mg/dL (0.7-1.3); TOT PROT 6.1 g/dl (6.4-8.2)
--- NOTE | 2017-04-16 10:52 | PN ---
[facility] CIWA - CIWA Score Nausea/Vomitin-Mild Nausea/No Vomiting Muscle Tremors: 3 Anxiety: 3 Agitation: 3 Paroxysmal Sweats: 1-Minimal Palms Moist Orientation: 0-Oriented Tacttile Disturbances: 1-Very Mild Itch/Numbness Auditory Disturbances: 0-None Visual Disturbances: 0-None Headache: 0-None Present CIWA-Ar Total Score: 12 BHS COWS - Scale Resting Pulse: 0= [place] 80 or Below Sweatin= Chills/Flushing Restless Observation: 1= Difficult to Sit Still Pupil Size: 0= Normal to Room Light Bone or Joint Aches: 1= Mild Discomfort Runny Nose/ Eye Tearin= Nasal Congestion GI Upset > 30mins: 1= Stomach Cramp Tremor Observation of Outstretched Hands: 1= Tremor [place], Not Seen Yawning Observation: 1= 1-2x During Session Anxiety or Irritability: 1=Feels Anxious/Irritable Goose Flesh Skin: 0=Smooth Skin COWS Score: 8 [facility] Progress Note (SOAP) Subjective: joint aches restlessness gi distress sleeplessness anxiety wants continue seroquel Objective: 04/16/17 10:51 Vital Signs Temperature 97.2 F L 04/16/17 10:38 Pulse Rate 69 04/16/17 10:38 Respiratory Rate 16 04/16/17 10:38 Blood Pressure 120/64 04/16/17 10:38 O2 Sat by Pulse Oximetry (%) Laboratory Last Values WBC 6.0 K/mm3 (4.0-10.0) D 04/16/17 08:00 RBC 4.37 M/mm3 (4.00-5.60) 04/16/17 08:00 Hgb 13.4 GM/dL (11.7-16.9) 04/16/17 08:00 Hct 38.8 % (35.4-49) 04/16/17 08:00 MCV 88.9 fl (80-96) 04/16/17 08:00 MCH 30.6 pg (25.7-33.7) D 04/16/17 08:00 MCHC 34.4 g/dl (32.0-35.9) 04/16/17 08:00 RDW 13.3 % (11.9-15.9) D 04/16/17 08:00 Plt Count 273 K/MM3 (134-434) D 04/16/17 08:00 MPV 7.4 fl (7.5-11.1) L 04/16/17 08:00 Urine Color Dkyellow 04/15/17 15:25 Urine Appearance Clear 04/15/17 15:25 Urine pH 6.0 (5.0-8.0) 04/15/17 15:25 Ur Specific [place] 1.027 (1.001-1.035) 04/15/17 15:25 Urine Protein Negative (NEGATIVE) 04/15/17 15:25 Urine Glucose (UA) 1+ (NEGATIVE) H 04/15/17 15:25 Urine Ketones Trace (NEGATIVE) H 04/15/17 15:25 Urine Blood 1+ (NEGATIVE) H 04/15/17 15:25 Urine Nitrite Negative (NEGATIVE) 04/15/17 15:25 Urine Bilirubin Negative (NEGATIVE) 04/15/17 15:25 Urine Urobilinogen 4.0 e.u/dl mg/dL (0.2-1.0) 04/15/17 15:25 Ur Leukocyte Esterase Negative (NEGATIVE) 04/15/17 15:25 Urine WBC (Auto) 3 /hpf (3-5) 04/15/17 15:25 Urine RBC (Auto) 7 /hpf (0-3) 04/15/17 15:25 Ur Epithelial Cells Rare /HPF (FEW) 04/15/17 15:25 Urine Mucus Many 04/15/17 15:25 lab noted Assessment: 04/16/17 10:51 withdrawal sx discontinue motrin begin zantac psychiatric consultation in place Plan: continue detox
--- NOTE | 2017-04-16 11:08 | CONSULT ---
[facility] Psychiatric Consult - Data Date of interview: 04/16/17 Admission source: Self-referred Identifying data: Mr Sheets is a 27 years old single male, father of a 4 months old son, unemployed, domiciled living with mother seeking detox treatment for alcohol, heroin and marijuana Substance Abuse History: Reports history of alcohol, heroin and marijuana use Medical History: Reports good physical health. Smokes cigarettes 1ppd Psychiatric History: Reports receiving psychiatric treatment for depression/ anxiety only in residential and inpt substance abuse program. Told hand sign writer that he was admitted to inpt rehab in this facility last December and was discharged on Seroquel 25 mg po HS and referred to [facility] where he continued to get medication. Denies history of previous psychiatric hospitalization or suicidal attempt. At present, reports feeling anxious and sleeping poorly. Physical/Sexual Abuse/Trauma History: Patient denies history of sexual, physical and verbal abuse as well as DV relationship Additional Comment: Reports history of previous felony conviction. Denies being on parole currently Mental Status Exam - Mental Status Exam Alert and Oriented to: Time, Place, Person Cognitive Function: Fair Patient Appearance: Well Groomed Mood: Hopeful, Euthymic Affect: Constricted Patient Behavior: Cooperative Speech Pattern: Clear Voice Loudness: Normal Thought Process: Intact, Goal Oriented Hallucinations: Denies Suicidal Ideation: Denies Homicidal Ideation: Denies Insight/Judgement: Poor Sleep: Poorly Appetite: Good Muscle strength/Tone: Normal Gait/Station: Normal Psychiatric Findings - Problem List ([place] 1, 2,3) (1) Substance-induced anxiety disorder Current Visit: Yes Status: Acute (2) Substance-induced sleep disorder Current Visit: Yes Status: Acute (3) Alcohol dependence with uncomplicated withdrawal Current Visit: Yes Status: Acute (4) Opioid dependence with withdrawal Current Visit: Yes Status: Acute (5) Cannabis dependence Current Visit: Yes Status: Acute (6) Nicotine dependence Current Visit: Yes Status: Chronic Qualifiers: Nicotine product type: cigarettes Substance use status: in withdrawal Qualified Code(s): F17.213 - Nicotine dependence, cigarettes, with withdrawal - Initial Treatment Plan Initial Treatment Plan: 1) Start Ambien 10 mg po HS prn for insomnia. Benefit vs Risks of medication discussed with patient and he agreed to try it. 2) Continue inpatient detoxificatio
[2017-04-16] MEDS: ACETAMINOPHEN 325 MG TABLET (FP) PO PRN (12:12)
[2017-04-16] MEDS: RANITIDINE HCL 150 MG TABLET (FP) PO SCH ×2 (12:13→22:43)
--- NOTE | 2017-04-16 14:28 | EKG ---
Test Reason : Blood Pressure : / mmHG Vent. Rate : 078 BPM Atrial Rate : 078 BPM P-R Int : 138 ms QRS Dur : 100 ms QT Int : 388 ms P-R-T Axes : 044 025 017 degrees QTc Int : 442 ms NORMAL SINUS RHYTHM NORMAL ECG WHEN COMPARED WITH ECG OF 20-DEC-2016 08:30, NO SIGNIFICANT CHANGE WAS FOUND Confirmed by MD DAYA, SEAN ([id number]) on 04/16/2017 2:28:31 PM Referred By: Confirmed By:SEAN STAPLETON MD
[2017-04-16] MEDS: hydrOXYzine PAMOATE 25 MG CAPSULE (FP) PO PRN (18:03)
[2017-04-16] MEDS: ZOLPIDEM TARTRATE 5 MG TABLET PO PRN (22:43)
[2017-04-16] MEDS: THIAMINE HCL 100 MG TABLET (FP) PO SCH (22:43)
[2017-04-17] MEDS: chlordiazePOXIDE HCL 25 MG CAPSULE PO SCH ×2 (05:13→10:09)
[2017-04-17] MEDS: METHADONE HCL 5 MG TABLET (FOR DETOX USE ONLY) PO SCH (10:09)
[2017-04-17] MEDS: RANITIDINE HCL 150 MG TABLET (FP) PO SCH ×2 (10:09→22:14)
[2017-04-17] MEDS: PRENATAL VITAMINS W/ FOLIC ACID TABLET (FP) PO SCH (10:09)
--- NOTE | 2017-04-17 11:46 | PN ---
S CIWA - CIWA Score Nausea/Vomitin Muscle Tremors: 3 Anxiety: 3 Agitation: 3 Paroxysmal Sweats: 1-Minimal Palms Moist Orientation: 0-Oriented Tacttile Disturbances: 1-Very Mild Itch/Numbness Auditory Disturbances: 1-Very Mild Visual Disturbances: 0-None Headache: 2-Mild CIWA-Ar Total Score: 17 BHS COWS - Scale Resting Pulse: 0= [place] 80 or Below Sweatin= Chills/Flushing Restless Observation: 3= Extraneous Movement Pupil Size: 1= Pupils >than Normal Bone or Joint Aches: 2= Severe Diffuse Aches Runny Nose/ Eye Tearin= Runny Nose/Eyes GI Upset > 30mins: 2= Nausea/Diarrhea Tremor Observation of Outstretched Hands: 2= Slight Tremor Visible Yawning Observation: 1= 1-2x During Session Anxiety or Irritability: 2=Irritable/Anxious Goose Flesh Skin: 0=Smooth Skin COWS Score: 16 S Progress Note (SOAP) Subjective: ALERT,IRRITABLE,ANXIOUS,INTERRUPTED SLEEP,TREMOR,PAIN IN THE BODY AND BACK Objective: 04/17/17 11:45 Vital Signs Temperature 97.9 F 04/17/17 10:00 Pulse Rate 88 04/17/17 10:00 Respiratory Rate 18 04/17/17 10:00 Blood Pressure 132/70 04/17/17 10:00 O2 Sat by Pulse Oximetry (%) EKG NSR,NORMAL ECG 04/17/17 11:45 Laboratory Last Values WBC 6.0 K/mm3 (4.0-10.0) D 04/16/17 08:00 RBC 4.37 M/mm3 (4.00-5.60) 04/16/17 08:00 Hgb 13.4 GM/dL (11.7-16.9) 04/16/17 08:00 Hct 38.8 % (35.4-49) 04/16/17 08:00 MCV 88.9 fl (80-96) 04/16/17 08:00 MCH 30.6 pg (25.7-33.7) D 04/16/17 08:00 MCHC 34.4 g/dl (32.0-35.9) 04/16/17 08:00 RDW 13.3 % (11.9-15.9) D 04/16/17 08:00 Plt Count 273 K/MM3 (134-434) D 04/16/17 08:00 MPV 7.4 fl (7.5-11.1) L 04/16/17 08:00 Sodium 139 mmol/L (136-145) 04/16/17 08:00 Potassium 3.6 mmol/L (3.5-5.1) 04/16/17 08:00 Chloride 106 mmol/L (98-107) 04/16/17 08:00 Carbon Dioxide 29 mmol/L (21-32) 04/16/17 08:00 Anion Gap 4 (8-16) L 04/16/17 08:00 BUN 10 mg/dL (7-18) D 04/16/17 08:00 Creatinine 0.7 mg/dL (0.7-1.3) 04/16/17 08:00 Creat Clearance w eGFR > 60 (>60) 04/16/17 08:00 Random Glucose 72 mg/dL (74-106) L D 04/16/17 08:00 Calcium 7.9 mg/dL (8.5-10.1) L 04/16/17 08:00 Total Bilirubin 0.5 mg/dL (0.2-1.0) D 04/16/17 08:00 AST 11 U/L (15-37) L D 04/16/17 08:00 ALT 19 U/L (12-78) D 04/16/17 08:00 Alkaline Phosphatase 52 U/L (45-117) D 04/16/17 08:00 Total Protein 6.1 g/dl (6.4-8.2) L D 04/16/17 08:00 Albumin 3.4 g/dl (3.4-5.0) 04/16/17 08:00 Urine Color Dkyellow 04/15/17 15:25 Urine Appearance Clear 04/15/17 15:25 Urine pH 6.0 (5.0-8.0) 04/15/17 15:25 Ur Specific [place] 1.027 (1.001-1.035) 04/15/17 15:25 Urine Protein Negative (NEGATIVE) 04/15/17 15:25 Urine Glucose (UA) 1+ (NEGATIVE) H 04/15/17 15:25 Urine Ketones Trace (NEGATIVE) H 04/15/17 15:25 Urine Blood 1+ (NEGATIVE) H 04/15/17 15:25 Urine Nitrite Negative (NEGATIVE) 04/15/17 15:25 Urine Bilirubin Negative (NEGATIVE) 04/15/17 15:25 Urine Urobilinogen 4.0 e.u/dl mg/dL (0.2-1.0) 04/15/17 15:25 Ur Leukocyte Esterase Negative (NEGATIVE) 04/15/17 15:25 Urine WBC (Auto) 3 /hpf (3-5) 04/15/17 15:25 Urine RBC (Auto) 7 /hpf (0-3) 04/15/17 15:25 Ur Epithelial Cells Rare /HPF (FEW) 04/15/17 15:25 Urine Mucus Many 04/15/17 15:25 RPR Titer Nonreactive (NONREACTIVE) 04/16/17 08:00 Assessment: 04/17/17 11:46 WITHDRAWAL SYMPTOM Plan: CONTINUE DETOX
[2017-04-17] MEDS: chlordiazePOXIDE 5 MG CAPSULE PO SCH ×2 (17:49→22:16)
[2017-04-17] MEDS: ZOLPIDEM TARTRATE 5 MG TABLET PO PRN (22:14)
[2017-04-17] MEDS: THIAMINE HCL 100 MG TABLET (FP) PO SCH (22:14)
[2017-04-18] MEDS: chlordiazePOXIDE 5 MG CAPSULE PO SCH ×2 (05:36→10:12)
[2017-04-18] MEDS: ACETAMINOPHEN 325 MG TABLET (FP) PO PRN (05:37)
[2017-04-18] MEDS: METHADONE HCL 5 MG TABLET (FOR DETOX USE ONLY) PO SCH (10:12)
[2017-04-18] MEDS: PRENATAL VITAMINS W/ FOLIC ACID TABLET (FP) PO SCH (10:12)
[2017-04-18] MEDS: RANITIDINE HCL 150 MG TABLET (FP) PO SCH ×2 (10:12→22:47)
--- NOTE | 2017-04-18 11:13 | PN ---
S CIWA - CIWA Score Nausea/Vomitin Muscle Tremors: 3 Anxiety: 3 Agitation: 3 Paroxysmal Sweats: 1-Minimal Palms Moist Orientation: 0-Oriented Tacttile Disturbances: 1-Very Mild Itch/Numbness Auditory Disturbances: 1-Very Mild Visual Disturbances: 0-None Headache: 2-Mild CIWA-Ar Total Score: 17 BHS COWS - Scale Resting Pulse: 0= [place] 80 or Below Sweatin= Chills/Flushing Restless Observation: 3= Extraneous Movement Pupil Size: 1= Pupils >than Normal Bone or Joint Aches: 2= Severe Diffuse Aches Runny Nose/ Eye Tearin= Nasal Congestion GI Upset > 30mins: 2= Nausea/Diarrhea Tremor Observation of Outstretched Hands: 2= Slight Tremor Visible Yawning Observation: 1= 1-2x During Session Anxiety or Irritability: 2=Irritable/Anxious Goose Flesh Skin: 0=Smooth Skin COWS Score: 15 [facility] Progress Note (SOAP) Subjective: ALERT,IRRITABLE,ANXIOUS,INTERRUPTED SLEEP,TREMOR,PAIN IN THE BODY AND BACK Objective: 04/18/17 11:11 Vital Signs Temperature 97.7 F 04/18/17 06:00 Pulse Rate 60 04/18/17 06:00 Respiratory Rate 18 04/18/17 06:00 Blood Pressure 126/61 04/18/17 06:00 O2 Sat by Pulse Oximetry (%) Laboratory Last Values WBC 6.0 K/mm3 (4.0-10.0) D 04/16/17 08:00 RBC 4.37 M/mm3 (4.00-5.60) 04/16/17 08:00 Hgb 13.4 GM/dL (11.7-16.9) 04/16/17 08:00 Hct 38.8 % (35.4-49) 04/16/17 08:00 MCV 88.9 fl (80-96) 04/16/17 08:00 MCH 30.6 pg (25.7-33.7) D 04/16/17 08:00 MCHC 34.4 g/dl (32.0-35.9) 04/16/17 08:00 RDW 13.3 % (11.9-15.9) D 04/16/17 08:00 Plt Count 273 K/MM3 (134-434) D 04/16/17 08:00 MPV 7.4 fl (7.5-11.1) L 04/16/17 08:00 Sodium 139 mmol/L (136-145) 04/16/17 08:00 Potassium 3.6 mmol/L (3.5-5.1) 04/16/17 08:00 Chloride 106 mmol/L (98-107) 04/16/17 08:00 Carbon Dioxide 29 mmol/L (21-32) 04/16/17 08:00 Anion Gap 4 (8-16) L 04/16/17 08:00 BUN 10 mg/dL (7-18) D 04/16/17 08:00 Creatinine 0.7 mg/dL (0.7-1.3) 04/16/17 08:00 Creat Clearance w eGFR > 60 (>60) 04/16/17 08:00 Random Glucose 72 mg/dL (74-106) L D 04/16/17 08:00 Calcium 7.9 mg/dL (8.5-10.1) L 04/16/17 08:00 Total Bilirubin 0.5 mg/dL (0.2-1.0) D 04/16/17 08:00 AST 11 U/L (15-37) L D 04/16/17 08:00 ALT 19 U/L (12-78) D 04/16/17 08:00 Alkaline Phosphatase 52 U/L (45-117) D 04/16/17 08:00 Total Protein 6.1 g/dl (6.4-8.2) L D 04/16/17 08:00 Albumin 3.4 g/dl (3.4-5.0) 04/16/17 08:00 Urine Color Dkyellow 04/15/17 15:25 Urine Appearance Clear 04/15/17 15:25 Urine pH 6.0 (5.0-8.0) 04/15/17 15:25 Ur Specific [place] 1.027 (1.001-1.035) 04/15/17 15:25 Urine Protein Negative (NEGATIVE) 04/15/17 15:25 Urine Glucose (UA) 1+ (NEGATIVE) H 04/15/17 15:25 Urine Ketones Trace (NEGATIVE) H 04/15/17 15:25 Urine Blood 1+ (NEGATIVE) H 04/15/17 15:25 Urine Nitrite Negative (NEGATIVE) 04/15/17 15:25 Urine Bilirubin Negative (NEGATIVE) 04/15/17 15:25 Urine Urobilinogen 4.0 e.u/dl mg/dL (0.2-1.0) 04/15/17 15:25 Ur Leukocyte Esterase Negative (NEGATIVE) 04/15/17 15:25 Urine WBC (Auto) 3 /hpf (3-5) 04/15/17 15:25 Urine RBC (Auto) 7 /hpf (0-3) 04/15/17 15:25 Ur Epithelial Cells Rare /HPF (FEW) 04/15/17 15:25 Urine Mucus Many 04/15/17 15:25 RPR Titer Nonreactive (NONREACTIVE) 04/16/17 08:00 Assessment: 04/18/17 11:12 WITHDRAWAL SYMPTOM Plan: CONTINUE DETOX
[2017-04-18] MEDS: chlordiazePOXIDE HCL 10 MG CAPSULE PO SCH ×2 (17:30→22:43)
[2017-04-18] MEDS: THIAMINE HCL 100 MG TABLET (FP) PO SCH (22:43)
[2017-04-18] MEDS: ZOLPIDEM TARTRATE 5 MG TABLET PO PRN (22:43)
[2017-04-19] MEDS: chlordiazePOXIDE HCL 10 MG CAPSULE PO SCH ×2 (06:05→10:47)
[2017-04-19] MEDS ORDERED: METHADONE HCL 10 MG TABLET (FOR DETOX USE ONLY) PO SCH (10:00)
--- NOTE | 2017-04-19 10:43 | PN ---
S Progress Note (SOAP) Subjective: ALERT,IRRITABLE,INTERRUPTED SLEEP, Objective: 04/19/17 10:41 Vital Signs Temperature 97.9 F 04/19/17 06:23 Pulse Rate 64 04/19/17 06:23 Respiratory Rate 18 04/19/17 06:23 Blood Pressure 129/88 04/19/17 06:23 O2 Sat by Pulse Oximetry (%) WITHDRAWAL SYMPTOM Assessment: 04/19/17 10:42 WITHDRAWAL SYMPTOM Plan: CONTINUE DETOX,DISCHARGE IN AM
[2017-04-19] MEDS: RANITIDINE HCL 150 MG TABLET (FP) PO SCH ×2 (10:47→22:11)
[2017-04-19] MEDS: PRENATAL VITAMINS W/ FOLIC ACID TABLET (FP) PO SCH (10:47)
[2017-04-19] MEDS: hydrOXYzine PAMOATE 25 MG CAPSULE (FP) PO PRN ×2 (15:09→22:11)
[2017-04-19] MEDS: ZOLPIDEM TARTRATE 5 MG TABLET PO PRN (22:11)
[2017-04-19] MEDS: THIAMINE HCL 100 MG TABLET (FP) PO SCH (22:11)
[2017-04-20] MEDS ORDERED: METHADONE HCL 5 MG TABLET (FOR DETOX USE ONLY) PO SCH (06:00)
[2017-04-20 06:21] VITALS: BP 137/85; PULSE 60; TEMP 97.3
--- NOTE | 2017-04-20 09:00 | PN ---
S Progress Note (SOAP) Subjective: ALERT,NO COMPLAINT Objective: 04/20/17 08:59 Vital Signs Temperature 97.3 F L 04/20/17 06:20 Pulse Rate 60 04/20/17 06:20 Respiratory Rate 18 04/20/17 06:20 Blood Pressure 137/85 04/20/17 06:20 O2 Sat by Pulse Oximetry (%) Assessment: 04/20/17 08:59 DETOX COMPLETED,NO WITHDRAWAL SYMPTOM Plan: DISCHARGE TODAY,FOLLOW UP WITH AFTER CARE PROGRAM ARRANGEMENT
--- NOTE | 2017-04-20 09:04 | DS ---
[facility] Detox Discharge Summary Admission Date: 04/15/17 Discharge Date: 04/20/17 - History Present History: Alcohol Dependence, Cannabis Dependence, Opioid Dependence Additional Comments: FOLLOW UP WITH AFTER CARE PROGRAM ARRANGEMENT Pertinent Past History: NICOTINE DEPENDENCE - Physical Exam Results Vital Signs: Vital Signs Temperature 97.3 F L 04/20/17 06:20 Pulse Rate 60 04/20/17 06:20 Respiratory Rate 18 04/20/17 06:20 Blood Pressure 137/85 04/20/17 06:20 O2 Sat by Pulse Oximetry (%) Pertinent Admission Physical Exam Findings: WITHDRAWAL SIGNS AND SYMPTOMS Vital Signs Temperature 97.3 F L 04/20/17 06:20 Pulse Rate 60 04/20/17 06:20 Respiratory Rate 18 04/20/17 06:20 Blood Pressure 137/85 04/20/17 06:20 O2 Sat by Pulse Oximetry (%) - Treatment Hospital Course: Detox Protocol Followed, Detoxed Safely, Responded well, Discharged Condition Good Patient has Accepted a Rehab Referral to: DECLINED - Medication Discharge Medications: Ambulatory Orders Gabapentin [Neurontin -] 100 mg PO TID #90 capsule 01/02/17 Quetiapine Fumarate [Seroquel -] 25 mg PO HS #30 tablet 01/02/17 - Diagnosis (1) Opioid dependence with withdrawal Current Visit: Yes Status: Acute (2) Cannabis dependence Current Visit: Yes Status: Acute (3) Alcohol dependence with uncomplicated withdrawal Current Visit: Yes Status: Acute (4) Nicotine dependence Current Visit: Yes Status: Chronic Qualifiers: Nicotine product type: cigarettes Substance use status: in withdrawal Qualified Code(s): F17.213 - Nicotine dependence, cigarettes, with withdrawal - AMA Did Patient Leave Against Medical Advice: No
--- NOTE | 2017-04-20 09:58 | PN ---
S Progress Note (SOAP) Subjective: ALERT,NO COMPLAINT Objective: 04/20/17 08:57 Vital Signs Temperature 97.3 F L 04/20/17 06:20 Pulse Rate 60 04/20/17 06:20 Respiratory Rate 18 04/20/17 06:20 Blood Pressure 137/85 04/20/17 06:20 O2 Sat by Pulse Oximetry (%) Assessment: 04/20/17 08:57 DETOX COMPLETED,NO WITHDRAWAL SYMPTOM Plan: DISCHARGE TODAY,FOLLOW UP WITH AFTER CARE PROGRAM ARRANGEMENT
== END 2017-04-20 09:37 | disposition home or self-care (01) | DRG 773 ==
LOC: YASAS 10:39 → Y6N 14:05
PROVIDERS: ADMIT Internal Medicine; ATTEND Internal Medicine
PROC: HZ2ZZZZ Detoxification Services for Substance Abuse Treatment (ICD-10-PCS; principal; 2017-04-15)
DX: F11.23 Opioid dependence with withdrawal (principal); F10.230 Alcohol dependence with withdrawal, uncomplicated; F12.20 Cannabis dependence, uncomplicated; F17.213 Nicotine dependence, cigarettes, with withdrawal; F19.280 Other psychoactive substance dependence with psychoactive substance-induced anxiety disorder; F19.282 Other psychoactive substance dependence with psychoactive substance-induced sleep disorder; E86.0 Dehydration
CPT/HCPCS: 36415; 80053; 81003; 81015; 85027; 86593; 93005; 93010